=== PATIENT | female | born 1975 | race American Indian/Alaskan Native ===

== ENCOUNTER 2017-02-03 14:28 | Outpatient (CLI) | payer MEDICAID ==
--- NOTE | 2017-02-03 16:26 | Magnetic Resonance Report ---
MRI OF THE BRAIN AND IACs WITHOUT AND WITH CONTRAST: 02/03/17 CLINICAL: Left sensorineural hearing loss. COMPARISON: None. TECHNIQUE: Sagittal T1, axial DWI, FLAIR and T2 whole brain sequences plus coronal and axial thin slice precontrast and postcontrast T1 IAC sequences on a 1.5 Veronique magnet. 12.0cc of Multihance was injected intravenously for the contrast portion of the exam. Consent was obtained prior to the administration of contrast. FINDINGS: The ventricles and sulci of the cerebrum are normal for age. However, there is marked cerebellar atrophy with enlargement of cerebellar sulci. The brainstem is normal. Moderate bilateral periventricular white matter hyperintensities FLAIR and T2. No other abnormal signal. Chronic lacunar infarcts of the right frontal lobe white matter. No mass or enhancing lesion. No restricted diffusion. Normal pituitary and optic chiasm. No abnormal focal enhancement or lack of enhancement. Bilateral cochlear and vestibular structures are normal. No IAC mass or enhancing lesion. IMPRESSION: 1. No acute change. 2. Normal IACs. 3. No mass or enhancing lesion. 4. Chronic cerebellar atrophy. 5. Moderate chronic white matter microangiopathy and chronic lacunar infarcts of the right frontal lobe white matter.
== END 2017-02-03 14:29 | disposition home or self-care (01) ==
LOC: SPVIMAG 14:28
PROVIDERS: ATTEND Otolaryngology
DX: H90.42 Sensorineural hearing loss, unilateral, left ear, with unrestricted hearing on the contralateral side (principal); G31.89 Other specified degenerative diseases of nervous system; I73.89 Other specified peripheral vascular diseases
CPT/HCPCS: 70553; A9577